=== PATIENT | female | born 1940 | race Caucasian/White ===

== ENCOUNTER 2017-02-14 15:49 | Emergency (ER) | payer MEDICARE, OTHER ==
[2017-02-14] MEDS ORDERED: acetaminophen 325mg tablet PO ONE (16:10)
[2017-02-14] MEDS ORDERED: oseltamivir phos 75mg capsule PO ONE (16:45)
[2017-02-14] MEDS ORDERED: TAM75C PO (17:02)
[2017-02-14] MEDS ORDERED: ALBU8.5H8 IH (17:05)
[2017-02-14 17:10] VITALS: BP 104/58
== END 2017-02-14 17:11 | disposition home or self-care (01) ==
LOC: ER 15:49
DX: J11.1 Influenza due to unidentified influenza virus with other respiratory manifestations (principal); F17.210 Nicotine dependence, cigarettes, uncomplicated; G89.29 Other chronic pain; Z91.048 Other nonmedicinal substance allergy status
CPT/HCPCS: 71020; 99284